=== PATIENT | male | born 1950 | race Caucasian/White ===

== ENCOUNTER 2024-03-16 11:58 | Emergency (ER) | payer MEDICARE, SELFPAY ==
[2024-03-16 12:38] VITALS: BP 173/81; PULSE 72; RESP 18; O2SAT 98; BMI 24.1
--- NOTE | 2024-03-16 13:26 | ED_ITS ---
HPI - Wound/Laceration <Julianne Rothman PA-C - Last Filed: 03/16/24 15:55> General Chief Complaint: Wound/Laceration Stated Complaint: wound/laceration L hand Time Seen by Provider: 03/16/24 12:56 Source: patient Mode of arrival: Ambulatory History of Present Illness HPI narrative: 73-year-old male presents to the ED status post a hand laceration sustained at 5:00 p.m. yesterday. Patient was working with anchoring a boat when the rope cut the webbing between his 4th and 5th digits of the left hand. Patient was able to control the bleeding with pressure. Patient washed the wound out well with fresh water, bandaged his hand by murtaza taping his 4th and 5th fingers together. No numbness, tingling, weakness. Last tetanus was 10 years ago. Related Data Previous Rx's Medication Instructions Recorded cephalexin 500 mg capsule 500 mg PO QID 5 days #20 caps 03/16/24 Allergies Allergy/AdvReac Type Severity Reaction Status Date / Time No Known Drug Allergies Allergy Verified 03/16/24 12:38 Review of Systems <Julianne Rothman PA-C - Last Filed: 03/16/24 15:55> Constitutional Constitutional: Denies chills, Denies fatigue, Denies fever(s), Denies frequent falls, Denies lethargy and Denies weakness Eyes Eyes: Denies change in vision, Denies eye discharge, Denies irritation and Denies loss of vision ENT Ears, Nose, Mouth, and Throat: Denies change in voice, Denies dizziness, Denies neck pain, Denies sore throat and Denies throat swelling Cardiovascular Cardiovascular: Denies chest pain, Denies irregular heart rhythm, Denies lightheadedness, Denies palpitations, Denies dyspnea, Denies dyspnea on exertion and Denies orthopnea Respiratory Respiratory: Denies cough, Denies dyspnea, Denies dyspnea on exertion and Denies wheezing Gastrointestinal Gastrointestinal: Denies abdominal pain, Denies change in bowel habits, Denies diarrhea, Denies nausea and Denies vomiting Musculoskeletal Musculoskeletal: Denies neck pain and Denies numbness Integumentary/Breasts Skin/Breast: Denies pruritus, Denies erythema, Denies rash and Denies wounds Comments: Laceration between 4th and 5th digit of the left hand in the webbing. Neurologic Neurologic: Denies behavioral changes, Denies confusion, Denies dizziness, Denies frequent falls, Denies loss of vision, Denies numbness and Denies weakness Psychiatric Psychiatric: Denies anxiety, Denies behavioral changes, Denies confusion, Denies depression, Denies homicidal ideation and Denies suicidal ideation Endocrine Endocrine: Denies fatigue, Denies flushing and Denies palpitations Hematologic/Lymphatic Hematologic/Lymphatic: Denies easy bruising Allergic/Immunologic Allergic/Immunologic: Denies urticaria, Denies throat swelling and Denies wheezing Patient History <Julianne Rothman PA-C - Last Filed: 03/16/24 15:55> Social History Smoking Status: Current some day smoker Smoking Status: Current some day smoker tobacco type: vaping alcohol intake frequency: 0-2 drinks per day Substance Use Type: marijuana Exam <Julianne Rothman PA-C - Last Filed: 03/16/24 15:55> Narrative Exam Narrative: Const General:?cooperative, healthy appearing and comfortable [facility] Head:?normal to inspection Ears:?hearing grossly normal bilaterally Nose:?external nose normal Face and sinus:?normal facial exam and sinuses nontender Mouth:?oral mucosae normal Throat:?posterior oropharynx normal Eyes General:?appearance normal, both eyes and all related structures Neck Neck:?normal visual inspection and no lymphadenopathy noted Resp Effort & Inspection:?normal respiratory effort Auscultation:?clear to auscultation bilaterally Cardio Rate:?regular rate Rhythm:?regular rhythm Integumentary There is a laceration to the webbing between the 4th and 5th digit of the left hand. No deeper structures visualized on exam. Strength and sensation is intact. There is full range of motion. Patient is neurovascularly intact. Bleeding is controlled with pressure. No signs of infection. Neuro General:?patient alert, patient awake and patient oriented x3 Initial Vital Signs Initial Vital Signs: Vital Signs Pulse Rate 72 03/16/24 12:38 Respiratory Rate 18 03/16/24 12:38 Blood Pressure 173/81 H 03/16/24 12:38 Pulse Oximetry 98 03/16/24 12:38 Oxygen Delivery Method Room Air 03/16/24 12:38 <Stephania Qiu MD - Last Filed: 03/17/24 07:46> Initial Vital Signs Initial Vital Signs: Vital Signs Pulse Rate 72 03/16/24 12:38 Respiratory Rate 18 03/16/24 12:38 Blood Pressure 173/81 H 03/16/24 12:38 Pulse Oximetry 98 03/16/24 12:38 Oxygen Delivery Method Room Air 03/16/24 12:38 Procedures <Julianne Rothman PA-C - Last Filed: 03/16/24 15:55> Laceration Repair Laceration 1: Site: hand Side (If applicable): left Size (cm): 2 Description: linear Local Anesthetic: lidocaine 1% Amount of anesthesia used (mL): 5 Pre-repair: wound explored, irrigated extensively and deep structures intact Skin layer closed with: nylon Skin layer suture size: 5-0 Number of sutures: 8 Technique: simple, interrupted Course <Julianne Rothman PA-C - Last Filed: 03/16/24 15:55> Orders Ordered: Discontinued Medications Diphtheria/Tetanus/Acell Pertussis (Tet,Diph,Pertuss(Acell),Vac/Pf 0.5 Ml Syringe) 0.5 ml IM .ONCE ONE Stop: 03/16/24 13:45 Last Admin: 03/16/24 13:58 Dose: 0.5 ml Documented By: BS Vital Signs Vital signs: Vital Signs - 8 hr 03/16/24 12:38 Pulse Rate 72 Respiratory Rate 18 Blood Pressure 173/81 H Pulse Oximetry 98 Oxygen Delivery Method Room Air <Stephania Qiu MD - Last Filed: 03/17/24 07:46> Orders Ordered: Discontinued Medications Diphtheria/Tetanus/Acell Pertussis (Tet,Diph,Pertuss(Acell),Vac/Pf 0.5 Ml Syringe) 0.5 ml IM .ONCE ONE Stop: 03/16/24 13:45 Last Admin: 03/16/24 13:58 Dose: 0.5 ml Documented By: BS Vital Signs Vital signs: Vital Signs - 8 hr 03/16/24 12:38 Pulse Rate 72 Respiratory Rate 18 Blood Pressure 173/81 H Pulse Oximetry 98 Oxygen Delivery Method Room Air MDM - Wound/Laceration <Julianne Rothman PA-C - Last Filed: 03/16/24 15:55> MDM Narrative Medical decision making narrative: 73-year-old male presents to the ED status post a hand laceration sustained at 5:00 p.m. yesterday. Patient is outside the usual window of 12 hours for a laceration repair, however given the extent of the laceration, will repair with sutures after a good soak and wound cleaning. Will prescribe antibiotics. Laceration was sutured with 8 sutures which will need to be removed in 7-10 days. Wound care instructions, signs of infection discussed with patient. Tetanus was updated. ED return precautions discussed with patient. Patient verbalized understanding. Medical records reviewed: Yes Discharge Plan Departure Patient Disposition: Home Clinical Impression: Laceration Instructions: DI for Laceration Repair Activity Restrictions/Additional Instructions: You were evaluated in the ED today for a hand injury. Your laceration was repaired with 8 sutures. The sutures will need to come out in 7-10 days. You may go to a walk-in clinic, your PCP or return to the ED for suture removal. Please keep the wound clean and dry for the next 24-48 hours. After that you may wash gently with soap and water, dry well before dressing. Please keep the wound dry at all times, and change out any wet dressings immediately. You have been prescribed an antibiotic for the next 5 days please take that as prescribed. Please watch for signs of infection including worsening redness, swelling, pain, warmth, discharge. Return to the ED if you note any signs of infection. Prescriptions: New cephalexin 500 mg capsule 500 mg PO QID 5 Days Qty: 20 0RF Stand Alone Forms: Patient Portal/API ED Sign-out <Stephania Qiu MD - Last Filed: 03/17/24 07:46> Cosign ED Attending Cosrenayature Attestation: I did not see this patient. I was available all times for consultation.
[2024-03-16] MEDS: TET,DIPH,PERTUSS(ACELL),VAC/PF 0.5 ML SYRINGE IM (13:58)
[2024-03-16 16:04] VITALS: BP 182/90; PULSE 70; RESP 16; O2SAT 99
== END 2024-03-16 16:05 | disposition home or self-care (01) ==
PROVIDERS: Emergency Provider Student in an Organized Health Care Education/Training Program
DX: S61.412A Laceration without foreign body of left hand, initial encounter (principal); W26.8XXA Contact with other sharp object(s), not elsewhere classified, initial encounter
CPT/HCPCS: 90471; 96372; 99283; 90715